=== PATIENT | female | born 1965 | race Caucasian/White ===

== ENCOUNTER 2022-04-19 10:58 | Emergency (ER) | payer BC ==
[~2022-04-19] VITALS: Ht 162.6 cm; Wt 70.0 kg
[2022-04-19 11:42] LABS: BASOPHILS % 0.2 % (0.0-2.0); EOSINOPHILS % 0.3 % (0.0-5.0); HEMATOCRIT. 39.2 % (36.0-48.0); HEMOGLOBIN. 12.9 g/dL (12.0-16.0); LYMPHOCYTES % 25.5 % (20.0-50.0); MEAN CORPUSCULAR HEMOGLOBIN 29.3 pg (28.0-32.0); MEAN CORPUSCULAR VOLUME 88.9 fL (81.0-99.0); MEAN PLATELET VOLUME 9.4 fl (7.4-10.4); MONOCYTES % 6.6 % (2.0-8.0); NEUTROPHILS % 67.4 % (40.0-76.0); PLATELET 175 x1000/uL (130-400); RED BLOOD CELL COUNT 4.41 mill/uL (4.2-5.4); RED CELL DISTRIBUTION WIDTH 13.9 % (11.6-14.6)
[2022-04-19] MEDS: SODIUM CHLORIDE 0.9% 1,000 ML IV ONE ×2 (11:50→12:01)
[2022-04-19 12:08] LABS: CHLORIDE 107 mEq/L (98-107)
[2022-04-19] MEDS ORDERED: OMEP40CA20 MT (12:43)
[2022-04-19 13:07] VITALS: BP 118/71
== END 2022-04-19 13:11 | disposition home or self-care (01) ==
LOC: ER 11:21
DX: R55 Syncope and collapse (principal); R10.9 Unspecified abdominal pain
CPT/HCPCS: 36415; 74176; 80053; 83690; 84484; 85025; 93005; 99285; C1893; J7030; Z7610